=== PATIENT | female | born 1975 | race Caucasian/White ===

== ENCOUNTER → 2016-03-16 | Day surgery (SDC) | payer BC ==
[2016-03-01 11:41] VITALS: Ht 160 cm; Wt 61.4 kg
[~2016-03-16] VITALS: Ht 160 cm; Wt 61.4 kg
[~2016-03-16] MED LIST: ATROPINE SULFATE 0.1 MG/ML 5ML SYR IV PRN; BUPIVACAINE 0.5 % 5 MG/1 ML PF 10ML VIAL ONE; CEFAZOLIN 1000MG/55 ML D5W IV SCH; CLR10 PO; CYCL10TA6 PO; ESSENTIAL OILS TOP; EpHEDrine SULFATE INJ 50 MG/ML AMP IV PRN; FENTANYL CITRATE INJ 50 MCG/1 ML 2 ML VIAL IV PRN; FENTANYL CITRATE INJ 50 MCG/1 ML 2 ML VIAL ONE; HYDR-3983 PO; HYDR-5688 PO; HYDROmorphone INJ 1 MG/ML SYR IV PRN; IBUP-103 PO; LACTATED RINGER'S 1000ML 1,000 ML IV SCH; LIDOCAINE HCL 1% 20 ML VIAL ONE; LIDOCAINE HCL 2% 2 ML VIAL (20MG/ML) ONE; LORA-741 PO; MIDAZOLAM HCL 1 MG/ML 2ML VIAL ONE; ONDANSETRON INJ 2 MG/ML 2 ML VIAL IV PRN; OXYCODONE/ACETAMINOPHEN 5-325 TAB PO PRN; PRLSR20 PO; PROB1TAB16 PO; PROPOFOL IV EMULSION 10 MG/ML 20 ML VIAL IV ONE; SODIUM CHLORIDE 0.9% 1000ML 1,000 ML IV SCH; TANGY TANGERINE PO; ZNTT/150 PO
--- NOTE | 2016-03-16 06:45 | History & Physical Bridge - [place] ---
H&P Re-Evaluation Bridge Note: I have examined the patient, reviewed the History & Physical and in the interval since the performance of the History & Physical I have noted the following changes of clinical significance: No changes noted
--- NOTE | 2016-03-16 07:07 | [facility] Post Operative Brief Note ---
Immediate Operative Summary Operative Date Mar 16, 2016. Pre-Operative Diagnosis Right Carpal Tunnel Syndrome Post-Operative Diagnosis same Procedure(s) Performed Right Carpal Tunnel Release Surgeon Dr. Maxi Goldberg Conveyor Belt Operator Surgeon(s) Karl Richard PA-C Estimated Blood Loss 0 Findings ABOVE Specimens none Anesthesia LOCAL IV SEDATION Complication(s) None Disposition
[2016-03-16 07:08] VITALS: BP 97/61; PULSE 87; TEMP 37.3; O2SAT 95
--- NOTE | 2016-03-16 07:10 | Discharge Instructions-SurgCtr ---
Discharge Instructions Visit Reason for Visit: Right Carpal Tunnel Syndrome Discharge Discharge Diagnosis / Problem: SAME ABOVE Discharge Goals Goal(s): Decrease discomfort, Improve function Activity Recommendations Activity Limitations: as noted below Lifting Limitations: until after follow-up appointment Exercise/Sports Limitations: until after follow-up appointment Shower/Bathe: keep incision dry Anesthesia . Post Anesthesia Instructions: If you have had General Anesthesia or IV Sedation: * Do not drive today. * Resume driving when surgeon permits. * Do not make important decisions or sign legal documents today. * Call surgeon for: 1. Temperature elevations greater than 101 degrees F. 2. Uncontrollable pain. 3. Excessive bleeding. 4. Persistent nausea and vomiting. 5. Medication intolerance (nausea, vomiting or rash). * For nausea and vomiting use only clear liquids such as: tea, soda, bouillon until nausea subsides, then gradually increase diet as tolerated. * If you have any concerns or questions, call your surgeon's office. If physician is unavailable and it is an emergency, call 911 or go to the nearest emergency room. . Instructions / Follow-Up Instructions / Follow-Up MEDICATIONS: * Resume previous medications unless instructed otherwise by your surgeon. * Always take pain medication on a full stomach or with food to avoid upset stomach. * Do not drink alcohol or drive while taking narcotics. * Ibuprofen or Tylenol may be taken if narcotic not needed. SPECIAL CARE INSTRUCTIONS: __ None _X_ Keep extremity elevated and iced x 48 hours; apply ice 20-30 minutes 8-10 times/day. May remove at night. __ Sling __24 hrs/day __ Remove at night __ Shoulder Immobilizer __ 24 hrs/day __ Remove at night _X_ Dressing _X_ Maintain until seen in office, may shower with plastic over site __ Remove dressings in 24-48 hours and then may shower __ Cover incisions with band-aids after showering __ Do not remove steri-strips Call physician if chills or temperature rises above 102 degrees or pain unrelieved by prescribed pain medications at . . Diet Recommendations Home Diet: resume previous diet Procedures Procedures Performed: Right Carpal Tunnel Release Pending Studies Studies pending at discharge: no Medical Emergencies . Who to Call and When: Medical Emergencies: If at any time you feel your situation is an emergency, please call 911 immediately. . Non-Emergent Contact Non-Emergency issues call your: Primary Care Provider . . "Provider Documentation" section prepared by Karl Richard.
--- NOTE | 2016-03-16 07:19 | OPERATIVE REPORT ---
DATE OF OPERATION: 03/16/2016 PREOPERATIVE DIAGNOSIS: Right carpal tunnel syndrome. POSTOPERATIVE DIAGNOSIS: Same. PROCEDURE: Decompression median nerve release transverse carpal ligament, right wrist. SURGEON: Dr. Goldberg. PROGRAM MANAGER: Karl Richard PA-C. ANESTHESIOLOGIST: Dr. Roldan. ANESTHESIA: Local with IV sedation. DRAINS: None. COMPLICATIONS: None. CONDITION: The patient tolerated the procedure well and returned to the recovery room in apparent satisfactory condition. INDICATIONS FOR SURGERY: Jaylin is a 40-year-old female who presents with right carpal tunnel complaints, numbness and tingling. We went over treatment options and elected to go ahead and proceed with surgery. Procedure, expected outcomes and side effects were all explained in detail. PROCEDURE: The patient was taken to the OR at which time she was placed supine on the operating table. The right hand was prepped and draped in the usual sterile fashion for this surgery. The anticipated incision site was infiltrated with 1% Xylocaine. A forearm tourniquet was placed on the arm and tourniquet was placed up to 250 mmHg. Incision was made vertically over the transverse carpal tunnel ligament. Dissection was done down until the palmar fascia was identified and divided with a 15-blade. The transverse carpal ligament was identified and also divided with the 15-blade and upbiting scissors. A small portion of the forearm fascia was divided also. Electrocautery was used to control any areas of bleeding. The nerve was freed up from any scar tissue and adequately decompressed. The wound then was copiously irrigated. It was closed then with interrupted 4-0 nylon sutures. Marcaine without Epinephrine was placed in the skin edges. It was closed in a layered fashion. We placed a sterile dressing of Xeroform, 4 x 4, volar splint, and an Giovanni bandage. DISPOSITION: The patient was returned back to the recovery room in apparent satisfactory condition. I attest to the content of the Intraoperative Record and any orders documented therein. Any exceptio ns are noted below.
--- NOTE | 2016-03-16 07:30 | Anesthesiology Progress Note ---
Anesthesia Post Op Note Date & Time Mar 16, 2016 at 07:30 Vital Signs Pain Intensity: 0 Vital Signs Past 12 Hours Date Time Temp Pulse Resp B/P Pulse Ox O2 Delivery O2 Flow Rate FiO2 03/16/16 07:08 37.3 87 16 97/61 95 Room Air 03/16/16 06:25 36.5 95 16 125/84 97 Room Air Notes Mental Status: alert / awake / arousable, participated in evaluation Pt Amnestic to Procedure: Yes Nausea / Vomiting: adequately controlled Pain: adequately controlled Airway Patency, RR, SpO2: stable & adequate BP & HR: stable & adequate Hydration State: stable & adequate Anesthetic Complications: no major complications apparent
== END | disposition home or self-care (01) ==
LOC: X.SURG 06:15
PROVIDERS: ATTEND Orthopaedic Surgery
DX: G56.01 Carpal tunnel syndrome, right upper limb (principal); Z90.710 Acquired absence of both cervix and uterus; F17.210 Nicotine dependence, cigarettes, uncomplicated; K21.9 Gastro-esophageal reflux disease without esophagitis

== ENCOUNTER → 2016-04-28 | Outpatient (CLI) | payer BC ==
[~2016-04-28] MED LIST changes: -ATROPINE SULFATE 0.1 MG/ML 5ML SYR IV PRN; -BUPIVACAINE 0.5 % 5 MG/1 ML PF 10ML VIAL ONE; -CEFAZOLIN 1000MG/55 ML D5W IV SCH; -EpHEDrine SULFATE INJ 50 MG/ML AMP IV PRN; -FENTANYL CITRATE INJ 50 MCG/1 ML 2 ML VIAL IV PRN; -FENTANYL CITRATE INJ 50 MCG/1 ML 2 ML VIAL ONE; -HYDROmorphone INJ 1 MG/ML SYR IV PRN; -LACTATED RINGER'S 1000ML 1,000 ML IV SCH; -LIDOCAINE HCL 1% 20 ML VIAL ONE; -LIDOCAINE HCL 2% 2 ML VIAL (20MG/ML) ONE; -MIDAZOLAM HCL 1 MG/ML 2ML VIAL ONE; -ONDANSETRON INJ 2 MG/ML 2 ML VIAL IV PRN; -OXYCODONE/ACETAMINOPHEN 5-325 TAB PO PRN; -PROPOFOL IV EMULSION 10 MG/ML 20 ML VIAL IV ONE; -SODIUM CHLORIDE 0.9% 1000ML 1,000 ML IV SCH
--- NOTE | 2016-04-29 13:44 | MAMMOGRAPHY REPORT ---
BILATERAL DIGITAL SCREENING MAMMOGRAM TOMOSYNTHESIS WITH CAD: 04/28/2016 TECHNIQUE: Breast tomosynthesis in addition to standard 2D mammography was performed. Current study was also evaluated with a Computer Aided Detection (CAD) system. COMPARISON: Comparison is made to exams dated: 04/21/2015 mammogram, 03/22/2014 mammogram, and 3 mammogram - [facility]. BREAST COMPOSITION: The tissue of both breasts is heterogeneously dense, which may obscure small ma sses. FINDINGS: There is a possible small cluster of faint calcifications in the left 12:00 breast anteri xiomy, for which spot magnification views are recommended for further evaluation. The remainder of both breasts are stable compared to prior exams, without suspicious masses, calcifi cations, or areas of architectural distortion noted. Benign intramammary lymph nodes are again seen within bilateral upper outer quadrants. IMPRESSION: ACR BI-RADS CATEGORY 0: INCOMPLETE EVALUATION: NEED ADDITIONAL IMAGING EVALUATION Left 12:00 calcifications, for which additional imaging evaluation is recommended. The patient will be called to schedule an appointment. Approximately 10% of breast cancers are not detected with mammography. A negative mammographic repor t should not delay biopsy if a clinically suggestive mass is present. Willa Perez M.D. ah/:04/29/2016 07:38:10 Director Of Women'S Services: Lashonda GO)(Krista), [facility] letter sent: Addl Imaging 0 BI-RADS Code: ACR BI-RADS Category 0: Incomplete Evaluation: Need Additional Imaging Evaluation
== END | disposition home or self-care (01) ==
LOC: C.MAMM 17:06
PROVIDERS: ATTEND Family Medicine
DX: Z12.31 Encounter for screening mammogram for malignant neoplasm of breast (principal); R92.1 Mammographic calcification found on diagnostic imaging of breast

== ENCOUNTER → 2016-05-14 | Outpatient (CLI) | payer BC ==
--- NOTE | 2016-05-17 13:48 | MAMMOGRAPHY REPORT ---
UNILATERAL LEFT DIGITAL DIAGNOSTIC MAMMOGRAM: 05/14/2016 CLINICAL HISTORY: Callback from screening mammogram for left breast calcifications. TECHNIQUE: Spot magnification left CC and ML views were obtained. COMPARISON: Comparison is made to exams dated: 04/28/2016 mammogram, 04/21/2015 mammogram, 03/22/2014 ul trasound, 03/22/2014 mammogram, 04/03/2012 mammogram, and 04/03/2012 ultrasound - [facility]. BREAST COMPOSITION: The tissue of the left breast is heterogeneously dense, which may obscure small masses. FINDINGS: Spot magnification views of the left breast demonstrate grouped faint punctate calcificat ions in the left 12:00 breast measuring approximately 8 mm in extent. The calcifications are not cl early evident on prior exams and are therefore indeterminant and stereotactic biopsy is recommended for further evaluation. A smaller 2 mm group of similar appearing punctate calcifications is seen w ithin the right central breast more lateral and posterior to the larger group. IMPRESSION: ACR BI-RADS CATEGORY 4: SUSPICIOUS Grouped faint calcifications in the left 12:00 breast are indeterminate and stereotactic biopsy is r ecommended for further evaluation. Pending benign pathology results, recommend follow-up diagnostic mammograms of the left breast to reevaluate the other similar- appearing smaller cluster in the lef t central breast. A phone call was made to the physician's office to confirm faxed results were received. The patient has been verbally notified of the results. She tentatively scheduled the biopsy before leaving the department. Approximately 10% of breast cancers are not detected with mammography. A negative mammographic repor t should not delay biopsy if a clinically suggestive mass is present. Willa Perez M.D. ah/:05/14/2016 14:34:16 General Production Laborer: Avis Dennis RT(R)(M), [facility] letter sent: Abnormal 4/5 BI-RADS Code: ACR BI-RADS Category 4: Suspicious
== END | disposition home or self-care (01) ==
LOC: C.MAMM 13:46
PROVIDERS: ATTEND Family Medicine
DX: R92.1 Mammographic calcification found on diagnostic imaging of breast (principal)

== ENCOUNTER → 2016-05-19 | Outpatient (CLI) | payer BC ==
--- NOTE | 2016-05-19 14:42 | Discharge Instructions ---
Discharge Instructions Procedure Procedure Date: May 19, 2016. Reason for visit: Left Calcs. Discharge Discharge Date: May 19, 2016. Discharge Diagnosis: status post breast biopsy Instructions Activity Recommendations: Additional Limitations (see below) Return to School/Work: no limitations Recommended Home Diet: No Limitations Provider Instructions: ACTIVITY RECOMMENDATIONS: * No lifting, pushing, pulling or exercising the affected side for three days. RETURN TO SCHOOL/WORK: * You may return to work/school after the procedure, but do not perform any strenuous activities for 24 to 48 hours. MEDICATIONS: * Tylenol (two 325 mg) every four to six hours if needed for mild pain (if not allergic to Tylenol). DIET: * Resume previous diet. SPECIAL CARE INSTRUCTIONS: * Keep biopsy site dry for 24 hours. May shower after 24 hours, but do not soak (bathe) incision. * May remove Tegaderm (plastic patch) tomorrow AFTER showering. * Leave the steri-strips on for one week. Allow the steri-strips to fall off by themselves. If not off after one week, you may remove them. You may place a Bandaid crosswise over the strips, if desired. * Apply ice 10 minutes on and 10 minutes off as needed. * Wear a bra at bedtime to sleep more comfortably for 2-3 days. * Your referring physician should have the results after approximately 5 to 7 business days. * Call for unusual bleeding, fever, drainage, etc or if you have any questions call during normal business hours or after hours call Dr Perez, [phone]. FOLLOW UP VISIT: Follow-up with Referring Physician as scheduled. Allergies Coded Allergies: No Known Allergies (Verified , 03/16/16) Timothy Henderson Recommendations: Call your doctor if: * Temperature above 101 degrees * Pain not relieved by pain medicine ordered * There is increased drainage or redness from any incision * You have any unanswered questions or concerns. Your Doctors Instructions noted above were prepared by provider Willa Perez. Patient Signature Section: Patient Instructions Signature Page Jaylin Vidal Patient (or Guardian) Signature/Date: I have read and understand the instructions given to me by my caregivers. Caregiver/RN/Doctor Signature/Date: The above-named patient and/or guardian has received patient instructions on this date. + Original Patient Signature Page (only) stays with chart. Please make copy for patient.
--- NOTE | 2016-05-19 15:30 | MAMMOGRAPHY REPORT ---
STEREOTACTIC GUIDED BIOPSY LEFT BREAST: 05/19/2016 CLINICAL HISTORY: Indeterminate calcifications in the left 12:00 breast. PATIENT CONSENT: The procedure, risks, benefits, and alternatives of stereotactic biopsy with clip p lacement were discussed with the patient, and verbal and written consent was obtained. A timeout wa s performed immediately prior to the procedure. PROCEDURE DESCRIPTION: With stereotactic guidance, aseptic technique, and lidocaine as a local anest hetic (1% lidocaine to anesthetize the skin and 1% lidocaine with epinephrine to anesthetize the angie per tissues), the area of concern was sampled multiple times with a 9-gauge vacuum-assisted biopsy n eedle ([employer]). The path of approach was craniocaudal. The specimen radiograph demonstrates c alcifications to be present in the samples. The samples containing calcifications (labeled A) were from the samples without calcifications (labeled B). A metallic marker clip was placed at the biopsy site. This was confirmed on postprocedure mammograms. Direct pressure was applied at t he biopsy site and hemostasis was readily achieved. The patient tolerated the procedure without com plication. She was given wound care instructions. COMPARISON: Comparison is made to exams dated: 04/28/2016 mammogram, 04/21/2015 mammogram, 03/22/2014 ma mmogram, and 04/03/2012 mammogram - [facility]. IMPRESSION: STEREOTACTIC GUIDED BIOPSY Stereotactic biopsy of indeterminate calcifications in the left 12:00 breast, with clip placement. The patient will receive pathology results from her referring provider. Pending benign pathology re sults, recommend follow-up diagnostic mammograms in 6 months to reevaluate the other similar-appeari ng cluster in the left breast. Willa Perez M.D. ah/:05/19/2016 14:45:08 Agronomy Location Manager: Stephanie HORVATH(R)(M), [facility]
--- NOTE | 2016-05-19 15:31 | MAMMOGRAPHY REPORT ---
UNILATERAL LEFT DIGITAL DIAGNOSTIC MAMMOGRAM: 05/19/2016 CLINICAL HISTORY: Status post stereotactic biopsy of left 12:00 breast calcifications. TECHNIQUE: Postprocedural left CC and ML views were obtained. COMPARISON: Comparison is made to exams dated: 04/28/2016 mammogram, 04/21/2015 mammogram, 03/22/2014 ma mmogram, 04/03/2012 mammogram, and 05/14/2016 mammogram - [facility]. BREAST COMPOSITION: The tissue of the left breast is heterogeneously dense, which may obscure small masses. FINDINGS: A new biopsy marker clip is seen at the site of the biopsied calcifications in the left 1 2:00 breast. No significant postbiopsy hematoma is seen. IMPRESSION: POST PROCEDURE IMAGING FOR MARKER PLACEMENT New biopsy marker clip status post stereotactic biopsy of left breast calcifications. Pathology res ults are pending. Pending benign pathology results, recommend follow-up diagnostic mammograms of th e left breast in 6 months to reevaluate the other similar-appearing cluster of calcifications in the left breast. Approximately 10% of breast cancers are not detected with mammography. A negative mammographic repor t should not delay biopsy if a clinically suggestive mass is present. Willa Perez M.D. ah/:05/19/2016 15:05:05 Bulk Plant Operator: Stephanie HORVATH(Lucia)(M), [facility] BI-RADS Code: Post Procedure Imaging For Marker Placement
== END | disposition home or self-care (01) ==
LOC: C.MAMM 13:42
PROVIDERS: ATTEND Family Medicine
DX: R92.0 Mammographic microcalcification found on diagnostic imaging of breast (principal)

== ENCOUNTER 2016-10-25 18:05 | Emergency (ER) | payer BC ==
[~2016-10-25] VITALS: Ht 160 cm; Wt 62.5 kg
[~2016-10-25 18:05] MED LIST changes: -CYCL10TA6 PO; -ESSENTIAL OILS TOP; -HYDR-3983 PO; -HYDR-5688 PO; -IBUP-103 PO
[2016-10-25 18:09] VITALS: TEMP 36.4; Ht 160 cm; Wt 62.5 kg
[2016-10-25] MEDS ORDERED: KETOROLAC TROMETHAMINE 60 MG/2 ML VIAL IM STA (18:28)
[2016-10-25] MEDS ORDERED: OXYCODONE HCL IR 5 MG TAB (IMMEDIATE RELEASE) PO STA (18:28)
--- NOTE | 2016-10-25 19:25 | DIAGNOSTIC IMAGING REPORT ---
L-SPINE MIN 4 VIEWS ROUTINE CLINICAL HISTORY: Low back pain COMPARISON STUDY: No previous studies for comparison. FINDINGS: There is a minimal spinal curvature. No acute fractures subluxations or destructive lesions are visualized. There is an old fracture the right 10th rib. IMPRESSION: 1. No fractures or dislocations identified. Electronically signed by: Armond San M.D. 10/25/2016 7:24 PM Dictated Date/Time: 10/25/2016 7:23 PM
--- NOTE | 2016-10-25 19:26 | DIAGNOSTIC IMAGING REPORT ---
KUB CLINICAL HISTORY: Left flank pain COMPARISON STUDY: No previous studies for comparison. FINDINGS: There is mild to moderate stool within the colon. There are no transition zones indicate bowel obstruction. The renal shadows are partially obscured overlying bowel gas and fecal material. No renal calculi are visualized. There are nonspecific pelvic basin calcifications IMPRESSION: 1. No evidence of bowel obstruction 2. No renal calculi identified however the kidneys are partially obscured by overlying bowel gas and fecal material 3. Nonspecific pelvic basin calcifications Electronically signed by: Armond San M.D. 10/25/2016 7:25 PM Dictated Date/Time: 10/25/2016 7:24 PM
[2016-10-25] MEDS ORDERED: IBUP-103 PO (19:37)
[2016-10-25] MEDS ORDERED: HYDR-3983 PO (19:37)
[2016-10-25] MEDS ORDERED: CYCL10TA6 PO (19:37)
[2016-10-25] MEDS ORDERED: ESSENTIAL OILS TOP (19:37)
[2016-10-25 19:43] LABS: URINE APPEARANCE CLEAR (CLEAR); URINE BILIRUBIN NEG (NEG); URINE COLOR YELLOW; URINE NITRITE NEG (NEG); URINE SPECIFIC GRAVITY 1.011 (1.000-1.030); UROBILINOGEN NEG (NEG)
[2016-10-25 19:44] LABS: MANUAL MICROSCOPIC REQUIRED? NO; REVIEW REQ? YES
[2016-10-25 20:19] VITALS: BP 124/81; PULSE 65; O2SAT 98
--- NOTE | 2016-10-25 21:46 | EMERGENCY ROOM VISIT NOTE ---
History Report prepared by Arnulfo: Rolando Vargas Under the Supervision of: Dr. Amadou Ruiz M.D. First contact with patient: 18:15 Chief Complaint: BACK PAIN Stated Complaint: LOW BACK EXTREME PAIN(LEFT),BLOOD IN URINE History of Present Illness The patient is a 41 year old female who presents to the Emergency Room with complaints of worsening left lower back pain that started a week ago. She rates her pain as an 8/10 in severity. It started as a burning pain down into her leg. The patient states that the pain is relieved with rest and worsened with movement. She states that she also had upper back pain, which she went to her family doctor for. The patient states that she received a steroid shot and was discharged home with instructions to not lift anything. The patient states that about a week ago, she noticed pain in her lower left back that radiated into her left lower extremity, but admits that the radiating pain has resolved. She reports that yesterday she could not bend over or generally move. The patient states that she laid on her cough and used iced to relieve the pain. 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 The patient states that to help relieve her pain at work, she used ice, a back brace, and took ibuprofen. She states that today she went to the chiropractor and admits that it helped relieve her pain mildly. The patient also states that she noticed a pink hue in her urine when she urinated earlier today. She admits that she has a history of a kidney stone, which occurred years ago, and a herniated disc, which she thinks her current symptom may be. The states that her PCP is Dr. Angela. The patient denies doing anything different, any falling incident, injury, burning during urination, fever, vomiting, fecal or urinary incontinence, numbness or weakness in legs, and numbness in her genital region. She has of a prior history of hysterectomy. Source of History: patient Onset: a week ago Position: back (lower) Symptom Intensity: 8/10 Quality: burning Timing: worsening Modifying Factors (Worsening): movement Modifying Factors (Relieving): rest Associated Symptoms: + urinary symptoms, No fevers, No vomiting, No weakness , No numbness Review of Systems See HPI for pertinent positives & negatives. A total of 10 systems reviewed and were otherwise negative. Past Medical & Surgical Medical Problems: (1) Chronic back pain (2) Herniated disc Surgical Problems: (1) H/O: hysterectomy Family History Patient reports no known family medical history. Social History Smoking Status: Current Every Day Smoker Alcohol Use: none Marital Status: single Housing Status: lives with significant other Occupation Status: employed Current/Historical Medications Scheduled Hydrocodone/Acetaminophen 7.5MG/325MG ([place] 7.5MG/325MG), 1 TAB PO Q6H Loratadine (Claritin), 10 MG PO QAM Lorazepam (Ativan), 0.5 MG PO BID Probiotic Product (Probiotic), 1 TAB PO QPM [Essential Oils], 1 APPLN TOP UD [[place]], 1 TBS PO DAILY Scheduled PRN Cyclobenzaprine Hcl (Flexeril), 1 TAB PO TID PRN for Muscle Spasm Ibuprofen Tab (Advil), 400 MG PO Q6H PRN for Pain Omeprazole (Prilosec), 20 MG PO DAILY PRN for Indigestion Ranitidine (Zantac), 150 MG PO DAILY PRN for Indigestion Allergies Coded Allergies: No Known Allergies (Verified , 03/16/16) Physical Exam Vital Signs Date Time Temp Pulse Resp B/P (MAP) Pulse Ox O2 Delivery O2 Flow Rate FiO2 10/25/16 20:19 65 18 124/81 98 10/25/16 19:23 58 16 121/72 97 Room Air 10/25/16 18:09 36.4 87 18 141/89 98 Room Air Physical Exam Constitutional: Vital signs reviewed. Eyes: Pupils are equal round reactive to light. Conjunctiva are noninjected. ENT: Pharynx is clear without erythema or exudate. Mucous membranes are moist. Neck supple without meningeal signs. Respiratory: Clear to auscultation bilaterally. Breath sounds are equal bilaterally. Cardiovascular: Regular rate and rhythm. No rubs or gallops. GI: Soft, nondistended and nontender. Bowel sounds are present. Musculoskeletal: No peripheral edema. No lower extremity tenderness. No CVA tenderness. No midline tenderness to the thoracic or lumbosacral spine. Left SI joint tenderness with positive straight leg raise bilaterally at 30 degrees. Integumentary: No cyanosis. Neurological: The patient is awake and alert. No focal deficits. Motor and sensation are intact for lower extremities. Psychiatric: Normal affect. Medical Decision & Procedures ER Provider Diagnostic Interpretation: X-ray results as stated below per interpretation by me and the radiologist: L-SPINE MIN 4 VIEWS ROUTINE CLINICAL HISTORY: Low back pain COMPARISON STUDY: No previous studies for comparison. FINDINGS: There is a minimal spinal curvature. No acute fractures subluxations or destructive lesions are visualized. There is an old fracture the right 10th rib. IMPRESSION: 1. No fractures or dislocations identified. Electronically signed by: Armond San M.D. 10/25/2016 7:24 PM Dictated Date/Time: 10/25/2016 7:23 PM KUB CLINICAL HISTORY: Left flank pain COMPARISON STUDY: No previous studies for comparison. FINDINGS: There is mild to moderate stool within the colon. There are no transition zones indicate bowel obstruction. The renal shadows are partially obscured overlying bowel gas and fecal material. No renal calculi are visualized. There are nonspecific pelvic basin calcifications IMPRESSION: 1. No evidence of bowel obstruction 2. No renal calculi identified however the kidneys are partially obscured by overlying bowel gas and fecal material 3. Nonspecific pelvic basin calcifications Electronically signed by: Armond San M.D. 10/25/2016 7:25 PM Dictated Date/Time: 10/25/2016 7:24 PM Laboratory Results Test 10/25/16 18:40 Urine Color YELLOW Urine Appearance CLEAR (CLEAR) Urine pH 6.0 (4.5-7.5) Urine Specific [place] 1.011 (1.000-1.030) Urine Protein NEG (NEG) Urine Glucose (UA) NEG (NEG) Urine Ketones NEG (NEG) Urine Occult Blood TRACE (NEG) Urine Nitrite NEG (NEG) Urine Bilirubin NEG (NEG) Urine Urobilinogen NEG (NEG) Urine Leukocyte Esterase NEG (NEG) Urine WBC (Auto) 1-5 /hpf (0-5) Urine RBC (Auto) 0-4 /hpf (0-4) Urine Hyaline Casts (Auto) 0 /lpf (0-5) Urine Epithelial Cells (Auto) 10-20 /lpf (0-5) Urine Bacteria (Auto) 1+ (NEG) Laboratory results as reviewed by me. Medications Administered Medications (Trade) Dose Ordered Sig/Ike Route Start Time Stop Time Status Last Admin Dose Admin Oxycodone HCl (Roxicodone Immediate Rel Tab) 5 mg NOW STAT PO 10/25/16 18:28 10/25/16 18:30 DC 10/25/16 18:36 5 MG Ketorolac Tromethamine (Toradol Inj) 30 mg NOW STAT IM 10/25/16 18:28 10/25/16 18:30 DC 10/25/16 18:36 30 MG ED Course 1817: The patient was evaluated in room C06. A complete history and physical exam was performed. 1827: Ordered Toradol Injectio n30 mg IV, Oxycodone HCl 5 mg PO. 1940: I discussed the test results with the patient. She is feeling slightly better. She reports that she takes hydrocodone chronically for her back pain. 1956: Upon reevaluation, the patient appeared to have improvement of her symptoms. I updated her on her urine results. I discussed waleska's findings with the patient. She verbalized agreement of the treatment plan. The patient was discharged home. Medical Decision This is a 41-year-old female presents with left lower back pain and hematuria. Differential diagnosis includes strain, sacroiliitis, lumbar stenosis, lumbar disc disease, UTI, kidney stone. I did perform a limited focused review of portions of the patient's old chart on the electronic medical record. The patient has had no recent pertinent visits to this hospital. I did evaluate the patient as noted above. The patient is presenting with a one -week history of left lower back pain radiating into her left flank. She has no signs of spinal cord injury. Her pain is worse with movement and she has a prior history of a herniated disc in her lower back. She states that her symptoms are similar to her prior pain. She notice that her urine was pink tinged but had no other urinary symptoms. She does state that she is a prior history of possible kidney versus gallstone. I did treat the patient with Toradol IM as well as oxycodone. I did order and personally review the patient 's urinalysis as described above. There is some hematuria. A urine culture was sent. She denies having any urinary symptoms. I did order an x-ray of the lumbosacral spine and KUB x-ray. I did review the images myself as well as the radiology report as described above. There is no evidence of acute abnormality. I did discuss the test results with the patient. She had some relief with the pain medicines. I did recommend she follow up closely with her doctor for further evaluation. She was given return instructions as outlined below. She will continue using her hydrocodone at home. [place] Drug Monitoring Program Search Results: patient reviewed within database, see additional documentation Drug Monitoring Findings: The patient received 120 7.5 mg of Hydrocodone on October 18. Medication Reconcilliation Current Medication List: was personally reviewed by me Blood Pressure Screening Patient's blood pressure: Elevated blood pressure Blood pressure disposition: Referred to PCP Impression Primary Impression: Acute exacerbation of chronic low back pain Additional Impression: Hematuria Scribe Attestation The scribe's documentation has been prepared under my direct and personally reviewed by me in its entirety. I confirm that the note above accurately reflects all work, treatment, procedures, and medical decision making performed by me. Departure Information Dispostion Home / Self-Care Referrals Marvel Angela D.O. (PCP) Forms HOME CARE DOCUMENTATION FORM, IMPORTANT VISIT INFORMATION Patient Instructions Back Pain - [facility], ED Hematuria, My [facility] Additional Instructions You have been examined and treated today on an emergency basis only. This is not a substitute for, or an effort to provide, complete comprehensive medical care. It is impossible to recognize and treat all injuries or illnesses in a single emergency department visit. It is therefore important that you follow up closely with your physician. Call as soon as possible for an appointment. Return for worsening symptoms or if you develop fever, vomiting, abdominal pain , loss of control of your bowel or bladder, numbness or weakness to your legs, numbness to your private area, difficulty urinating, or any other concerning symptoms. Problem Qualifiers Additional Impression: Hematuria Hematuria type: unspecified type Qualified Codes: R31.9 - Hematuria, unspecified
== END 2016-10-25 20:20 | disposition home or self-care (01) ==
LOC: C.EDB 18:06 → C.EDC 20:20
DX: M54.5 Low back pain (principal); G89.29 Other chronic pain; R31.9 Hematuria, unspecified; F17.200 Nicotine dependence, unspecified, uncomplicated; Z90.710 Acquired absence of both cervix and uterus; Z79.899 Other long term (current) drug therapy

== ENCOUNTER → 2016-11-17 | Outpatient (CLI) | payer BC ==
[~2016-11-17] MED LIST changes: +CYCL10TA6 PO; +ESSENTIAL OILS TOP; +HYDR-3983 PO; +IBUP-103 PO
--- NOTE | 2016-11-17 13:50 | MAMMOGRAPHY REPORT ---
UNILATERAL LEFT DIGITAL DIAGNOSTIC MAMMOGRAM TOMOSYNTHESIS WITH CAD: 11/17/2016 CLINICAL HISTORY: 41-year-old woman presents 6 months after a benign left breast stereotactic biopsy to reevaluate a similar appearing non-biopsied grouping of punctate calcifications in the central lef t breast. TECHNIQUE: Left breast tomosynthesis in addition to standard 2D mammography was performed. Spot magn ification left CC and ML views were also obtained. Current study was also evaluated with a Computer Aided Detection (CAD) system. COMPARISON: Comparison is made to exams dated: 05/19/2016 mammogram, 05/19/2016 stereotactic biopsy, 05/14 mammogram, 04/28/2016 mammogram, 04/21/2015 mammogram, and 03/22/2014 ultrasound - [facility], [place], operated by [facility]. BREAST COMPOSITION: The tissue of the left breast is heterogeneously dense, which may obscure small masses. FINDINGS: There is a stable dumbbell-shaped metallic biopsy marker in the anterior retroareolar left breast. No obvious new mass, architectural distortion or developing asymmetry is identified. On the spot magnification views, there is a loose grouping of approximately 4-5 punctate monomorphic microc alcifications in the central left breast, that appear stable dating back to spot magnification views performed 05/14/2016, and are most likely benign given that they appear similar to the biopsied benig n cluster in the anterior subareolar breast. However, given that they are not well-seen on prior ful l-field mammograms, another short interval follow-up left diagnostic mammogram including spot magnifi cation views is recommended to ensure stability in 6 more months. IMPRESSION: ACR-BI-RADS CATEGORY 3: PROBABLY BENIGN There is a stable loose grouping of punctate monomorphic microcalcifications in the central left jones st, which are similar in appearance to the biopsied benign cluster in the anterior left breast. Anot her six-month follow-up left diagnostic mammogram including spot magnification views is recommended t o ensure longer stability. Annual right mammography will also be due at that time. These results and recommendations were discussed with the patient at the time of the exam. Approximately 10% of breast cancers are not detected with mammography. A negative mammographic report should not delay biopsy if a clinically suggestive mass is present. Dunia Mckeon M.D. ay/:11/17/2016 10:52:41 Mid Level Practitioner: Lashonda Busch RT(R)(M), [facility] letter sent: Follow Up Recommended 3 BI-RADS Code: ACR-BI-RADS Category 3: Probably Benign
== END | disposition home or self-care (01) ==
LOC: C.MAMM 10:19
PROVIDERS: ATTEND Family Medicine
DX: R92.0 Mammographic microcalcification found on diagnostic imaging of breast (principal)

== ENCOUNTER → 2017-01-04 | Outpatient (CLI) | payer BC ==
[2017-01-04 18:47] LABS: LYME DISEASE AB IGG NEG (NEG); LYME DISEASE AB IGM NEG (NEG)
[2017-01-09 17:34] LABS: HISTOPLASMA AB Negative (Negative)
== END | disposition home or self-care (01) ==
LOC: C.LAB1850 16:24
PROVIDERS: ATTEND Internal Medicine Infectious Disease
DX: B39.9 Histoplasmosis, unspecified (principal); M13.0 Polyarthritis, unspecified

== ENCOUNTER → 2017-06-06 | Outpatient (CLI) | payer BC ==
[~2017-06-06] MED LIST changes: +RANI150T85 PO; -ZNTT/150 PO
--- NOTE | 2017-06-07 13:04 | MAMMOGRAPHY REPORT ---
BILATERAL DIGITAL DIAGNOSTIC MAMMOGRAM TOMOSYNTHESIS WITH CAD: 06/06/2017 CLINICAL HISTORY: 41-year-old woman with a history of prior benign stereotactic left breast biopsy pr esents for follow-up of a smaller non-biopsied cluster of punctate calcifications in the left breast. Also due for annual bilateral screening exam. TECHNIQUE: Bilateral breast tomosynthesis in addition to standard 2D mammography was performed. Spot magnification left CC and ML views were also obtained. Current study was also evaluated with a Comp uter Aided Detection (CAD) system. COMPARISON: Comparison is made to exams dated: 11/17/2016 mammogram, 05/19/2016 mammogram, 05/19/2016 ster eotactic biopsy, 05/14/2016 mammogram, 04/28/2016 mammogram, and 04/21/2015 mammogram - [facility]. BREAST COMPOSITION: The tissue of both breasts is heterogeneously dense, which may obscure small mas ses. FINDINGS: The glandular pattern is similar to prior mammograms. There is a stable intramammary lymph node in the upper outer posterior right breast. A stable metallic biopsy marker clip in the anterio r subareolar left breast. No new developing asymmetry, suspicious mass, architectural distortion or new cluster of microcalcifications is seen. Spot magnification views of the left breast redemonstrat e a small grouping of approximately 4 punctate microcalcifications located posterior and lateral to t he metallic biopsy marker clip, which are stable based on previous spot magnification views dating ba ck to at least 05/14/2016. These most likely represent benign fibrocystic change although another 12 m onth follow-up diagnostic evaluation is recommended to ensure longer stability. IMPRESSION: ACR-BI-RADS CATEGORY 3: PROBABLY BENIGN Stable mammographic appearance of the breasts, including stable postbiopsy changes in the anterior blanton bareolar left breast, and a stable small grouping of non-biopsied microcalcifications also in the lef t breast. Another 12 month follow-up diagnostic evaluation is recommended to ensure longer stability of the non-biopsied calcifications. Annual bilateral screening mammography will also be due at that time. These results and recommendations were discussed with the patient at the time of the exam. Approximately 10% of breast cancers are not detected with mammography. A negative mammographic report should not delay biopsy if a clinically suggestive mass is present. Dunia Mckeon M.D. ay/:06/06/2017 12:43:33 Consumer Marketing Specialist: Justa Mosley RT(Lucia)(M), [facility] letter sent: Follow Up Recommended 3 BI-RADS Code: ACR-BI-RADS Category 3: Probably Benign
== END | disposition home or self-care (01) ==
LOC: C.MAMM 08:36
PROVIDERS: ATTEND Family Medicine
DX: R92.0 Mammographic microcalcification found on diagnostic imaging of breast (principal)

== ENCOUNTER 2017-06-27 16:19 | Emergency (ER) | payer BC ==
[~2017-06-27] VITALS: Ht 160 cm; Wt 63.2 kg
[~2017-06-27 16:19] MED LIST changes: -CYCL10TA6 PO; -ESSENTIAL OILS TOP; -HYDR-3983 PO
[2017-06-27 16:27] VITALS: BP 132/75; PULSE 90; TEMP 36.8; O2SAT 96; Ht 160 cm; Wt 63.2 kg
[2017-06-27 17:28] LABS: INFLUENZA B ANTIGEN Neg for Influ B (NEG)
[2017-06-27] MEDS ORDERED: HYDR-3983 PO (19:37)
[2017-06-27] MEDS ORDERED: ESSENTIAL OILS TOP (19:37)
[2017-06-27] MEDS ORDERED: CYCL10TA6 PO (19:37)
--- NOTE | 2017-06-27 21:06 | EMERGENCY ROOM VISIT NOTE ---
History First contact with patient: 16:29 Chief Complaint: FLU LIKE SX Stated Complaint: TEST FOR FLU History of Present Illness The patient is a 42 year old female who presents to the Emergency Room with complaints of exposure to influenza B. The patient has been feeling ill the past 1-2 days and recently found out that her sister was hospitalized with influenza B. The patient does not have chest pain or chest tightness. She has been taking [id number] analgesics, and otherwise doing well. She does not have chronic cardiopulmonary disease and otherwise rates her discomfort a 1/ 10. She contacted her primary care physician who recommended that she be tested. Review of Systems More than 10 systems were reviewed and otherwise negative with the exception of history of present illness. Past Medical/Surgical History Medical Problems: (1) Chronic back pain (2) Herniated disc Surgical Problems: (1) H/O: hysterectomy Family History Patient reports no known family medical history. Social History Smoking Status: Never Smoker Alcohol Use: none Marital Status: single Housing Status: lives with significant other Occupation Status: employed Current/Historical Medications Scheduled Lorazepam (Ativan), 0.5 MG PO BID Probiotic Product (Probiotic), 1 TAB PO QPM [Essential Oils], 1 APPLN TOP UD [Tangy [place]], 1 TBS PO DAILY Scheduled PRN Cyclobenzaprine Hcl (Flexeril), 10 MG PO TID PRN for Muscle Spasm Hydrocodone/Acetaminophen 7.5MG/325MG ([place] 7.5MG/325MG), 1 TAB PO Q6H PRN for Pain Loratadine (Claritin), 10 MG PO QAM PRN for Allergy Symptoms Physical Exam Vital Signs Date Time Temp Pulse Resp B/P (MAP) Pulse Ox O2 Delivery O2 Flow Rate FiO2 18 16:27 36.8 90 18 132/75 96 Room Air Physical Exam VITALS: Vitals are noted on the nurse's note and reviewed by myself. Vital signs stable. GENERAL: Well-developed, well-nourished, white female, who is in no acute distress and resting comfortably. Patient is cooperative with the examination. HEAD: Normocephalic atraumatic. EARS: External ear normal. External auditory canals clear, tympanic membranes pearly garcia without erythema or effusion bilaterally. EYES: Pupils equal round and reactive to light and accommodation. Conjunctivae without injection, sclerae without icterus. Extraocular movements intact. NOSE: Patent, turbinates without inflammation or discharge. MOUTH: Mucous membranes moist. Tonsils are not enlarged. Pharynx without erythema, blood, or exudate. Uvula midline. Airway patent. NECK: Supple without nuchal rigidity. No lymphadenopathy. No thyromegaly. Cervical spine is nontender. HEART: Regular rate and rhythm without murmurs gallops or rubs. LUNGS: Clear to auscultation bilaterally without wheezes, rales or rhonchi. No retractions or accessory muscle use. Medical Decision & Procedures Laboratory Results Test 06/27/17 00:00 Influenza Type A Antigen Neg for Influ A (NEG) Influenza Type B Antigen Neg for Influ B (NEG) ED Course Physical exam and history were performed. Nursing notes, EMR, and Medication List were personally reviewed. Patient appears to have had exposure to influenza B. I discussed options of care and the patient would like to be tested. Influenza swab was performed and was negative. Overall the patient appears well for discharge home. She is to use [id number] medication and was otherwise invited back to the ER with any new, worsening, or concerning symptoms. The chart was completed utilizing [employer] Speech Voice Recognition Software. Grammatical errors, random word insertions, pronoun errors, and incomplete sentences are an occasional consequence of this system due to software limitations, ambient noise, and hardware issues. Any formal questions or concerns about the content, text, or information contained within the body of this dictation should be directly addressed to the provider for clarification. . Medical Decision Differential diagnosis: Etiologies such as viral syndrome, otitis, pharyngitis, pneumonia, influenza, meningitis, urinary tract infection, sepsis, bacteremia, as well as others were entertained. Impression Primary Impression: Influenza-like symptoms Departure Information Dispostion Home / Self-Care Condition GOOD Referrals Marvle Angela D.O. (PCP) Forms HOME CARE DOCUMENTATION FORM, IMPORTANT VISIT INFORMATION Patient Instructions My [facility] Additional Instructions You were seen and evaluated today on an emergency basis only. This is not a substitute for, or an effort to provide, complete comprehensive medical care. It is not possible to recognize and treat all injuries or illnesses in a single emergency department visit. For this reason it is recommended that you followup with your primary care physician this week with any ongoing or persisting symptoms. Continue [id number] Tylenol and Motrin You are welcome to return to the emergency department anytime with new, worsening, or concerning symptoms.
== END 2017-06-27 18:05 | disposition home or self-care (01) ==
LOC: C.EDB 16:20 → C.EDD 18:05
DX: R68.89 Other general symptoms and signs (principal)

== ENCOUNTER → 2017-06-28 | Outpatient (CLI) | payer BC ==
[~2017-06-28] MED LIST changes: +CYCL10TA6 PO; +ESSENTIAL OILS TOP; +FUROSEMIDE INJ 10 MG/ML 2 ML VIAL IV ONE; +HYDR-3983 PO; -IBUP-103 PO; -PRLSR20 PO; -RANI150T85 PO
--- NOTE | 2017-06-28 11:38 | DIAGNOSTIC IMAGING REPORT ---
RENAL SCAN DIURETIC (MAG 3) CLINICAL HISTORY: 42 years-old Female presenting with N13.5 UPJ (ureteropelvic junction) obstruction. TECHNIQUE: A nuclear diuretic renal scan is performed following the IV administration of 8.80 mCi technetium 99m radiolabeled MAG3. Posterior blood flow images were acquired at one frame every two seconds for a total 30 frames. Posterior static cortical phase images were acquired every 5 minutes for a total of 45 minutes. IV Lasix was administered at 20 minutes. Renal curves were calculated. COMPARISON: 01/11/2017. FINDINGS: On the blood flow phase images, prompt and symmetric perfusion of both kidneys.. On the cortical phase images, normal transit of radiotracer into the bilateral renal collecting systems. However, abnormal retention of radiotracer in the left renal collecting system. Normal emptying of excreted radiotracer from the right renal collecting system. Subsequently, clearance phase imaging demonstrates time to peak on the right measuring 3 minutes and on the left was measuring 13 minutes. The time from max to half max pre-Lasix on the right measures 5 minutes and on the left measures 17 minutes. The time to half post Lasix on the left measures 10 minutes. Radiotracer further washes out normally on the right kidney post-Lasix. No abnormal retention of radiotracer in the collecting systems after furosemide administration. Right: Approximate counts at 3 minutes: 1700 Approximate counts at 20 minutes: 500 Approximate counts at peak: 1700 Ratio of counts at 20 minutes/3 minutes: 0.29 Ratio of counts at 20 minutes/peak: 0.29 Left: Approximate counts at 3 minutes: 2200 Approximate counts at 20 minutes: 2600 Approximate counts at peak: 2600 Ratio of counts at 20 minutes/3 minutes: 1.18 Ratio of counts at 20 minutes/peak: 1.0 Split function measurements of 47% on the right and 53% on the left. Reference ranges: Normal time to peak: 3 to 5 minutes. Normal time from peak to half max pre-Lasix: 8-12 minutes. Ratio of counts at 20 minutes/3 minutes should be less than 0.8 and 20 minutes/peak less than 0.3. Washout of at least 50% of tracer within 10 minutes post Lasix normal; if greater than 50% retention between 10 to 20 minutes post Lasix, indeterminate for obstruction; if greater than 50% retention beyond 20 minutes, suspected obstruction. IMPRESSION: 1. Delayed washout of radiotracer from the left renal collecting system pre-Lasix with expected washout of radiotracer post Lasix. This can be seen in the setting of a flaccid renal collecting system or ureteropelvic junction obstruction. 2. Normal right renal function. 3. Relative renal function on the right 47% and on the left kidney 53%. Electronically signed by: Shalom Mortensen M.D. 06/28/2017 11:36 AM Dictated Date/Time: 06/28/2017 11:24 AM
== END | disposition home or self-care (01) ==
LOC: C.NUCL 10:08
PROVIDERS: ATTEND Urology
DX: N13.5 Crossing vessel and stricture of ureter without hydronephrosis (principal)

== ENCOUNTER → 2017-07-08 | Outpatient (CLI) | payer BC ==
[~2017-07-08] MED LIST changes: -FUROSEMIDE INJ 10 MG/ML 2 ML VIAL IV ONE
--- NOTE | 2017-07-08 14:02 | DIAGNOSTIC IMAGING REPORT ---
IVP W/OR W/O TOMOGRAMS CLINICAL HISTORY: N13.5 UPJ (ureteropelvic junction) [id number] . LEFT flank pain. COMPARISON STUDY: Outside hospital abdomen and pelvis CT 12/20/2016. FINDINGS: Field Operator images show no definite renal or ureteral calculi. Multiple calcifications in the deep pelvis likely represent phleboliths. Calcified granuloma seen within the liver and spleen. There is a bone island within the left posterior iliac bone. Following the intravenous administration of contrast there is prompt and symmetric perfusion of the kidneys. The kidneys are normal in size and shape. No right hydronephrosis. No suspicious filling defects seen within the right renal collecting system are visualized right ureter. There is severe dilatation of the left renal pelvis with moderate dilatation of the left renal calyces. This is unchanged compared to the prior CT examination. There is tight stenosis at the ureteropelvic junction without a trace contrast extending beyond the ureteropelvic junction. This is essentially nondiagnostic evaluation of the left ureter. The bladder is normal in size and shape. Trace postvoid residual. IMPRESSION: 1. Marked dilatation of the left renal pelvis with moderate calyceal dilatation within the left kidney. Tight stenosis at the ureteropelvic junction with only a trace amount of contrast extending into the left ureter. Therefore, this confirms the UPJ obstruction. 2. Normal right renal collecting system. 3. No suspicious filling defects seen within the opacified bilateral renal collecting systems or bladder. Electronically signed by: Mukul Lamas M.D. 07/08/2017 2:00 PM Dictated Date/Time: 07/08/2017 1:53 PM
== END | disposition home or self-care (01) ==
LOC: C.RAD 12:18
PROVIDERS: ATTEND Urology
DX: N13.5 Crossing vessel and stricture of ureter without hydronephrosis (principal); T83.84XA Pain due to genitourinary prosthetic devices, implants and grafts, initial encounter; X58.XXXA Exposure to other specified factors, initial encounter